=== PATIENT | male | born 1975 | race Two or more races ===

== ENCOUNTER 2023-02-07 01:30 | Emergency (ER) | payer OTHER ==
[~2023-02-07] VITALS: Ht 182.9 cm; Wt 115.2 kg
[2023-02-07] MEDS ORDERED: ALLOPURINOL300 MG PO (01:49)
== END 2023-02-07 04:46 | disposition home or self-care (01) ==
LOC: ER 01:30
DX: M1A.9XX0 Chronic gout, unspecified, without tophus (tophi) (principal); Z88.0 Allergy status to penicillin